=== PATIENT | male | born 1970 | race Caucasian/White ===

== ENCOUNTER → 2016-09-23 | Outpatient (CLI) | payer OTHER ==
[2016-09-23 13:28] LABS: ANION GAP 8 MEQ/L (8-16); BLOOD UREA NITROGEN 14 MG/DL (7-18); CALCIUM LEVEL 9.2 MG/DL (8.5-10.1); CARBON DIOXIDE LEVEL 32 MEQ/L (21-32); CHLORIDE LEVEL 102 MEQ/L (98-107); CREATININE FOR GFR 0.89 MG/DL (0.70-1.30); GLOMERULAR FILTRATION RATE > 60.0 (>60); GLUCOSE, FASTING 112 MG/DL (70-105); POTASSIUM SERUM 4.2 MEQ/L (3.5-5.1); SODIUM LEVEL 142 MEQ/L (136-145)
== END ==
LOC: M WUC 09:30
PROVIDERS: ATTEND Family Medicine
DX: R73.01 Impaired fasting glucose (principal)

== ENCOUNTER → 2017-01-17 | Outpatient (CLI) | payer OTHER | LOC: M WUC 11:25 | PROVIDERS: ATTEND Family Medicine | DX: R73.01 Impaired fasting glucose (principal) ==

== ENCOUNTER → 2017-07-21 | Outpatient (CLI) | payer OTHER ==
[2017-07-21 21:22] LABS: ANION GAP 8 MEQ/L (8-16); BLOOD UREA NITROGEN 16 MG/DL (7-18); CALCIUM LEVEL 9.2 MG/DL (8.5-10.1); CARBON DIOXIDE LEVEL 30 MEQ/L (21-32); CHLORIDE LEVEL 104 MEQ/L (98-107); CREATININE FOR GFR 0.93 MG/DL (0.70-1.30); GLOMERULAR FILTRATION RATE > 60.0 (>60); GLUCOSE, FASTING 93 MG/DL (70-105); POTASSIUM SERUM 4.2 MEQ/L (3.5-5.1); SODIUM LEVEL 142 MEQ/L (136-145)
[2017-07-21 21:30] LABS: ESTIMATED AVERAGE GLUCOSE 137 MG/DL (60-110); HEMOGLOBIN A1c 6.4 %
== END ==
LOC: M WUC 16:37
DX: R73.01 Impaired fasting glucose (principal)
CPT/HCPCS: 83036

== ENCOUNTER → 2019-01-15 | Outpatient (CLI) | payer BC ==
[2019-01-15 13:00] LABS: BASO # 0.1 10^3/uL (0.0-0.2); BASO % 0.7 % (0.0-1.0); EOS # 0.1 10^3/uL (0.0-0.50); EOS % 1.7 % (0.0-3.0); HEMATOCRIT 44.2 % (42.0-52.0); HEMOGLOBIN 14.7 g/dl (13.5-17.5); LYMPH # 2.8 10^3/uL (1.5-4.5); MEAN CORPUSCULAR HEMOGLOBIN 29.8 pg (27.0-33.0); MEAN CORPUSCULAR HGB CONC 33.3 g/dl (32.0-36.5); MEAN CORPUSCULAR VOLUME 89.7 fl (80.0-96.0); MONO # 0.7 10^3/uL (0.0-0.8); NEUTROPHILS # 4.5 10^3/uL (1.8-7.7); NEUTROPHILS % 54.5 % (36.0-66.0); PLATELET COUNT, AUTOMATED 229 10^3/uL (150-450); RED BLOOD COUNT 4.93 10^6/uL (4.30-6.10); WHITE BLOOD COUNT 8.2 10^3/uL (4.0-10.0)
[2019-01-15 13:36] LABS: HEMOGLOBIN A1c 6.9 %
[2019-01-15 13:40] LABS: ALBUMIN 3.9 GM/DL (3.2-5.2); ALT/SGPT 71 U/L (12-78); BILIRUBIN,TOTAL 0.4 MG/DL (0.2-1.0); BLOOD UREA NITROGEN 14 MG/DL (7-18); CALCIUM LEVEL 8.8 MG/DL (8.5-10.1); CARBON DIOXIDE LEVEL 30 MEQ/L (21-32); CHLORIDE LEVEL 103 MEQ/L (98-107); CHOLESTEROL LEVEL 219 MG/DL (<200); CHOLESTEROL RISK RATIO 4.866 (<5); CREATININE FOR GFR 0.81 MG/DL (0.70-1.30); GLOMERULAR FILTRATION RATE > 60.0 (>60); GLUCOSE, FASTING 95 MG/DL (70-100); HDL CHOLESTEROL 45 MG/DL (>40); LDL CHOLESTEROL 140 MG/DL (<100); NON-HDL-C 174 MG/DL; POTASSIUM SERUM 4.6 MEQ/L (3.5-5.1); SODIUM LEVEL 141 MEQ/L (136-145); THYROID STIMULATING HORMONE 0.796 uIU/ML (0.358-3.740); TOTAL PROTEIN 7.3 GM/DL (6.4-8.2); TRIGLYCERIDES LEVEL 168 MG/DL (<150)
== END ==
LOC: M WUC 10:40
PROVIDERS: ATTEND Family Medicine
DX: I10 Essential (primary) hypertension (principal); R73.01 Impaired fasting glucose

== ENCOUNTER → 2020-03-16 | Outpatient (CLI) | payer BC ==
--- NOTE | 2020-04-06 08:19 | REP ---
RIGHT TIBIA-FIBULA CLINICAL: Pain and swelling. TECHNIQUE: AP and lateral views of the right tibia-fibula. FINDINGS: Evidence for prior fixation for distal tibial and fibular fractures at the ankle. No acute fracture or dislocation. Surrounding soft tissues are normal. IMPRESSION: No acute pathology by radiographic evaluation. MTDD
== END ==
LOC: M WUC 16:39
PROVIDERS: ATTEND Physician Assistant
DX: M79.661 Pain in right lower leg (principal)

== ENCOUNTER → 2020-07-24 | Outpatient (CLI) | payer BC ==
[2020-07-24 19:32] LABS: HEMOGLOBIN A1c 6.6 %
[2020-07-24 19:39] LABS: ALBUMIN 4.3 GM/DL (3.2-5.2); ALT/SGPT 74 U/L (12-78); BILIRUBIN,TOTAL 0.4 MG/DL (0.2-1.0); BLOOD UREA NITROGEN 14 MG/DL (7-18); CALCIUM LEVEL 9.4 MG/DL (8.5-10.1); CARBON DIOXIDE LEVEL 29 MEQ/L (21-32); CHLORIDE LEVEL 104 MEQ/L (98-107); CHOLESTEROL LEVEL 229 MG/DL (<200); CHOLESTEROL RISK RATIO 5.325 (<5); CREATININE FOR GFR 0.87 MG/DL (0.70-1.30); GLOMERULAR FILTRATION RATE > 60.0 (>60); GLUCOSE, FASTING 98 MG/DL (70-100); HDL CHOLESTEROL 43 MG/DL (>40); LDL CHOLESTEROL 139 MG/DL (<100); NON-HDL-C 186 MG/DL; POTASSIUM SERUM 3.8 MEQ/L (3.5-5.1); SODIUM LEVEL 141 MEQ/L (136-145); TOTAL PROTEIN 7.5 GM/DL (6.4-8.2); TRIGLYCERIDES LEVEL 233 MG/DL (<150)
== END ==
LOC: M WUC 15:55
PROVIDERS: ATTEND Nurse Practitioner Family
DX: E11.69 Type 2 diabetes mellitus with other specified complication (principal); I10 Essential (primary) hypertension; E78.5 Hyperlipidemia, unspecified

== ENCOUNTER → 2020-08-22 | Outpatient (CLI) | payer SELFPAY | LOC: M LABSMTC 09:39 | PROVIDERS: ATTEND Pediatrics | DX: Z20.822 Contact with and (suspected) exposure to COVID-19 (principal) ==

== ENCOUNTER → 2021-03-02 | Outpatient (REF) | payer BC ==
[2021-03-02 14:47] LABS: MALB URINE SIEMENS 16.5 MG/L; MAU/CREAT RATIO 9.1 MCG/MG (0.0-30.0)
== END ==
LOC: M LAB REF 13:10
PROVIDERS: ATTEND Nurse Practitioner Family
DX: E11.69 Type 2 diabetes mellitus with other specified complication (principal)

== ENCOUNTER → 2021-12-21 | Outpatient (CLI) | payer BC ==
[2021-12-21 12:55] LABS: ALT/SGPT 58 U/L (12-78); BILIRUBIN,TOTAL 0.6 MG/DL (0.2-1.0); BLOOD UREA NITROGEN 17 MG/DL (7-18); CALCIUM LEVEL 9.5 MG/DL (8.5-10.1); CARBON DIOXIDE LEVEL 30 MEQ/L (21-32); CHLORIDE LEVEL 101 MEQ/L (98-107); CHOLESTEROL LEVEL 243 MG/DL (<200); CHOLESTEROL RISK RATIO 6.942 (<5); CREATININE FOR GFR 1.08 MG/DL (0.70-1.30); GLOMERULAR FILTRATION RATE > 60.0 (>60); GLUCOSE, FASTING 227 MG/DL (70-100); HDL CHOLESTEROL 35 MG/DL (>40); LDL CHOLESTEROL 159 MG/DL (<100); NON-HDL-C 208 MG/DL; POTASSIUM SERUM 4.6 MEQ/L (3.5-5.1); SODIUM LEVEL 137 MEQ/L (136-145); TOTAL PROTEIN 7.6 GM/DL (6.4-8.2); TRIGLYCERIDES LEVEL 244 MG/DL (<150)
[2021-12-21 18:47] LABS: MAU/CREAT RATIO 14.6 MCG/MG (0.0-30.0)
== END ==
LOC: M WUC 10:06
PROVIDERS: ATTEND Nurse Practitioner Family
DX: I10 Essential (primary) hypertension (principal); E11.69 Type 2 diabetes mellitus with other specified complication; E78.5 Hyperlipidemia, unspecified

== ENCOUNTER → 2023-05-15 | Outpatient (CLI) | payer BC ==
[2023-05-15 12:22] LABS: HEMOGLOBIN A1c 9.8 % (4.0-6.0)
[2023-05-15 12:26] LABS: ALBUMIN 3.9 G/DL (3.2-5.2); ALKALINE PHOSPHATASE 52 U/L (46-116); ALT/SGPT 36 U/L (7.0-40); AST/SGOT 15 U/L (<34); BILIRUBIN,TOTAL 0.5 MG/DL (0.3-1.2); BLOOD UREA NITROGEN 14 MG/DL (9-23); CARBON DIOXIDE LEVEL 31 MMOL/L (20-31); CHLORIDE LEVEL 103 MMOL/L (98-107); CHOLESTEROL LEVEL 227 MG/DL (<200); CHOLESTEROL RISK RATIO 6.02 (<5); CREATININE FOR GFR 0.63 MG/DL (0.70-1.30); GLOMERULAR FILTRATION RATE > 60.0 (>56); GLUCOSE, FASTING 156 MG/DL (60-100); HDL CHOLESTEROL 37.7 MG/DL (>40); LDL CHOLESTEROL 156.3 MG/DL (<100); NON-HDL-C 189.3 MG/DL; POTASSIUM SERUM 3.9 MMOL/L (3.5-5.1); SODIUM LEVEL 141 MMOL/L (136-145); TRIGLYCERIDES LEVEL 165 MG/DL (<150)
== END ==
LOC: M WUC 08:05
PROVIDERS: ATTEND Nurse Practitioner Family
DX: I10 Essential (primary) hypertension (principal); E11.69 Type 2 diabetes mellitus with other specified complication; E78.5 Hyperlipidemia, unspecified

== ENCOUNTER → 2023-08-22 | Outpatient (CLI) | payer BC ==
[2023-08-22 11:54] LABS: HEMOGLOBIN A1c 7.8 % (4.0-6.0)
== END ==
LOC: M WUC 08:04
PROVIDERS: ATTEND Nurse Practitioner Family
DX: I10 Essential (primary) hypertension (principal)

== ENCOUNTER → 2023-12-19 | Outpatient (CLI) | payer BC ==
[2023-12-19 12:19] LABS: HEMOGLOBIN A1c 6.9 % (4.0-6.0)
== END ==
LOC: M WUC 08:22
PROVIDERS: ATTEND Nurse Practitioner Family
DX: E11.69 Type 2 diabetes mellitus with other specified complication (principal); I10 Essential (primary) hypertension

== ENCOUNTER → 2024-04-16 | Outpatient (CLI) | payer BC ==
[2024-04-16 11:24] LABS: ALBUMIN 3.9 G/DL (3.2-5.2); ALKALINE PHOSPHATASE 74 U/L (46-116); ALT/SGPT 34 U/L (7.0-40); AST/SGOT 16 U/L (<34); BILIRUBIN,TOTAL 0.4 MG/DL (0.3-1.2); BLOOD UREA NITROGEN 16 MG/DL (9-23); CALCIUM LEVEL 9.9 MG/DL (8.5-10.1); CARBON DIOXIDE LEVEL 33 MMOL/L (20-31); CHLORIDE LEVEL 103 MMOL/L (98-107); CHOLESTEROL LEVEL 159 MG/DL (<200); CHOLESTEROL RISK RATIO 5.17 (<5); CREATININE FOR GFR 0.88 MG/DL (0.70-1.30); GLOMERULAR FILTRATION RATE > 60.0 (>56); GLUCOSE, FASTING 105 MG/DL (60-100); HDL CHOLESTEROL 30.7 MG/DL (>40); LDL CHOLESTEROL 95.9 MG/DL (<100); NON-HDL-C 128.3 MG/DL; POTASSIUM SERUM 5.1 MMOL/L (3.5-5.1); SODIUM LEVEL 140 MMOL/L (136-145); TOTAL PROTEIN 7.2 G/DL (5.7-8.2); TRIGLYCERIDES LEVEL 162 MG/DL (<150)
[2024-04-16 11:31] LABS: HEMOGLOBIN A1c 7.5 % (4.0-6.0)
[2024-04-16 11:50] LABS: CREATININE, URINE 149.3 MG/DL; MAU/CREAT RATIO 6.6 MCG/MG (0.0-30.0)
== END ==
LOC: M WUC 08:11
PROVIDERS: ATTEND Nurse Practitioner Family
DX: E11.59 Type 2 diabetes mellitus with other circulatory complications (principal); I10 Essential (primary) hypertension; E78.5 Hyperlipidemia, unspecified

== ENCOUNTER → 2024-06-28 | Outpatient (REF) | payer BC ==
[2024-06-28 11:05] LABS: HEMOGLOBIN A1c 7.5 % (4.0-6.0)
== END ==
LOC: M LABWUC 09:35
PROVIDERS: ATTEND Nurse Practitioner Family
DX: E11.69 Type 2 diabetes mellitus with other specified complication (principal)

== ENCOUNTER → 2024-07-01 | Outpatient (CLI) | payer BC ==
[2024-07-01 10:18] LABS: BASO # 0.1 10^3/uL (0.0-0.2); BASO % 0.6 % (0.0-1.0); EOS # 0.1 10^3/uL (0.0-0.5); EOS % 1.5 % (0.0-3.0); HEMATOCRIT 46.6 % (42.0-52.0); HEMOGLOBIN 15.4 g/dl (13.5-17.5); LYMPH # 2.5 10^3/uL (1.5-5.0); LYMPH % 26.4 % (24.0-44.0); MEAN CORPUSCULAR HEMOGLOBIN 28.8 pg (27.0-33.0); MEAN CORPUSCULAR VOLUME 87.3 fl (80.0-96.0); MONO # 0.6 10^3/uL (0.0-0.8); MONO % 6.2 % (2.0-8.0); NEUTROPHILS % 64.5 % (36.0-66.0); PLATELET COUNT, AUTOMATED 244 10^3/uL (150-450); RED BLOOD COUNT 5.34 10^6/uL (4.30-6.10); WHITE BLOOD COUNT 9.3 10^3/uL (4.0-10.0)
[2024-07-01 10:44] LABS: MAGNESIUM LEVEL 1.7 MG/DL (1.8-2.4)
[2024-07-01 10:45] LABS: PERCENT SATURATION 16.5 % (19.7-50.0)
[2024-07-01 10:47] LABS: FERRITIN 56.8 NG/ML (10.5-307.3); FOLATE 10.3 NG/ML (>5.4); THYROID STIMULATING HORMONE 0.638 uIU/ML (0.55-4.78)
[2024-07-01 12:19] LABS: TOTAL 25(OH) VITAMIN D 20.8 NG/ML (20.0-100.0)
[2024-07-12 13:47] LABS: TESTOSTERONE TOTAL FOR T&D 29 ng/dL (250-1100)
== END ==
LOC: M WUC 08:14
PROVIDERS: ATTEND Nurse Practitioner Family
DX: R53.83 Other fatigue (principal)

== ENCOUNTER → 2024-08-06 | Outpatient (CLI) | payer BC ==
[2024-08-06 11:06] LABS: PSA SCREENING 0.67 NG/ML (< 4.00)
[2024-08-06 11:10] LABS: FOLLICLE STIMULATING HORMONE 4.4 mIU/ML (1.4-18.1)
[2024-08-06 11:11] LABS: LUTEINIZING HORMONE 1.9 mIU/ML (1.5-9.3)
[2024-08-06 11:12] LABS: ESTRADIOL 43.6 PG/ML (<39.8)
== END ==
LOC: M WUC 08:03
PROVIDERS: ATTEND Nurse Practitioner Family
DX: E29.1 Testicular hypofunction (principal)
CPT/HCPCS: 36415; 82670; 83001; 83002; 84403; G0103

== ENCOUNTER → 2024-09-24 | Outpatient (CLI) | payer BC | LOC: M WUC 08:11 | PROVIDERS: ATTEND Nurse Practitioner Family | DX: E11.69 Type 2 diabetes mellitus with other specified complication (principal) ==

== ENCOUNTER → 2025-03-21 | Outpatient (CLI) | payer BC ==
[2025-03-21 12:48] LABS: PLATELET COUNT, AUTOMATED 226 10^3/uL (150-450); PROSTATIC SPECIFIC AG MONITOR 0.8 NG/ML (< 4.00)
[2025-03-21 12:52] LABS: TESTOSTERONE 196.0 NG/DL (241-827)
== END ==
LOC: M WUC 08:13
PROVIDERS: ATTEND Nurse Practitioner Family
DX: E29.1 Testicular hypofunction (principal)